=== PATIENT | female | born 1935 | race Caucasian/White ===

== ENCOUNTER 2019-09-29 11:53 | Emergency (ER) | payer MEDICARE, OTHER ==
[~2019-09-29] VITALS: Ht 160 cm; Wt 62.3 kg
[2019-09-29 12:03] VITALS: TEMP 97.7
[2019-09-29] MEDS ORDERED: SYNTHROID0.1 MG/TAB PO (13:03)
[2019-09-29] MEDS ORDERED: TOPROL XL 25MG25 MG PO (13:03)
[2019-09-29 13:49] LABS: COLLECTION METHOD CLEAN CATCH
[2019-09-29 13:57] LABS: BASO % 0.3 % (0.0-2.0); EOS % 0.1 % (0-4.0); GRAN % 83.7 % (42.2-75.2); HEMATOCRIT 44.2 % (37.0-47.0); HEMOGLOBIN 14.8 g/dl (12.5-16.0); LYMPH # 1.5 (1.2-3.4); LYMPH % 11.3 % (20.0-51.0); MEAN CELL VOLUME 92 fl (80.0-100.0); MEAN CORPUSCULAR HEMOGLOBIN 31 pg (27.0-31.0); MEAN CORPUSCULAR HGB CONC 34 g/dl (33.0-37.0); MEAN PLATELET VOLUME 8.9 fl (7.4-10.4); MONO # 0.5 (0.1-0.6); MONO % 4.1 % (1.7-9.3); PLATELET COUNT 259 K/mm3 (130-400); RED BLOOD COUNT 4.83 M/mm3 (4.10-5.30); REDCELL DISTRIBUTION WIDTH-CV 12.7 % (11.5-14.5)
[2019-09-29 14:06] LABS: MUCOUS Present /lpf; PH 6 (5-8); SQUAMOUS EPITHELIAL 20-50 /hpf; URINE APPEARANCE Hazy; URINE BACTERIA Occasional /hpf; URINE BILIRUBIN Negative (NEGATIVE); URINE BLOOD Negative (NEGATIVE); URINE COLOR Yellow; URINE GLUCOSE Negative (NEGATIVE); URINE KETONE 1+ (NEGATIVE); URINE LEUKOCYTE ESTERASE Trace (NEGATIVE); URINE NITRATE Negative (NEGATIVE); URINE PROTEIN(semi-quant) Negative (NEGATIVE); URINE RBC None Seen /hpf; URINE UROBILINOGEN Negative (NEGATIVE)
[2019-09-29 14:22] LABS: ALANINE AMINOTRANSFERASE 15 U/L (9-52); ALBUMIN 4.9 gm/dL (3.5-5.0); ALKALINE PHOSPHATASE 63 U/L (50-136); ANION GAP 11 mmol/L (7-16); AST,SGOT 23 U/L (15-37); BILIRUBIN,TOTAL 1.9 mg/dL (0.0-1.0); BLOOD UREA NITROGEN 28 mg/dL (7-17); CALCIUM 10.1 mg/dL (8.4-10.2); CARBON DIOXIDE 25 mmol/L (22-30); CHLORIDE 105 mmol/L (98-107); GLUCOSE 160 mg/dL (74-106); POTASSIUM 4.2 mmol/L (3.4-5.0); SODIUM 140 mmol/L (137-145); TOTAL PROTEIN 8.5 gm/dL (6.4-8.2)
[2019-09-29 14:29] LABS: C-REACTIVE PROTEIN < 0.5 mg/dL (0.0-0.9)
[2019-09-29] MEDS ORDERED: NORCO 325 MG-51 TAB PO (16:36)
[2019-09-29 17:05] VITALS: BP 153/71; PULSE 67
== END 2019-09-29 17:05 | disposition home or self-care (01) ==
LOC: COL.ER 11:53
PROVIDERS: Nurse Practitioner
DX: N20.1 Calculus of ureter (principal)
CPT/HCPCS: J2270; J2405; J7030; Q9967

== ENCOUNTER 2020-12-25 12:58 | Outpatient (RCR) | payer MEDICARE, OTHER ==
[~2020-12-25 12:58] MED LIST: NORCO 325 MG-51 TAB PO; SYNTHROID0.1 MG/TAB PO; TOPROL XL 25MG25 MG PO
== END 2021-03-25 | disposition still patient (30) ==
LOC: MKS.ESL.PT
DX: N39.41 Urge incontinence (principal)